=== PATIENT | female | born 1985 | race African-American/Black ===

== ENCOUNTER 2018-02-10 07:36 | Day surgery (SDC) | payer BC ==
[~2018-02-10 07:36] MED LIST: Lactated Ringers 1,000 ML IV SCH; Sodium Chloride 0.9% 10 ML Syringe FLUSH PRN; Sodium Chloride 0.9% 2.5 ML Syringe FLUSH PRN
--- NOTE | 2018-02-10 08:09 | PCM.PREANE ---
Preanesthetic Assessment - Anesthesia/Transfusion/Family Hx Anesthesia History: No Prior Anesthesia Family History of Anesthesia Reaction: No Transfusion History: No Prior Transfusion(s) Intubation History: Unknown - Review of Systems General: No Symptoms Pulmonary: No Symptoms Cardiovascular: No Symptoms Gastrointestinal: No Symptoms Neurological: No Symptoms Other: Reports: None - Physical Assessment Height: 1.54 m Weight: 72.121 kg ASA Class: 2 Mental Status: Alert & Oriented x3 Airway Class: Mallampati = 2 Dentition: Reports: Normal Dentition, Broken Tooth/Teeth (right upper molar x1) Thyro-Mental Finger Breadths: 3 Mouth Opening Finger Breadths: 3 ROM/Head Extension: Full Lungs: Clear to Auscultation, Normal Respiratory Effort Cardiovascular: Regular Rate, Regular Rhythm - Allergies Allergies/Adverse Reactions: Allergies Allergy/AdvReac Type Severity Reaction Status Date / Time No Known Allergies Allergy Verified 02/05/18 07:45 - Blood Blood Available: No - Anesthesia Plan Pre-Op Medication Ordered: None - Acknowledgements Anesthesia Type Planned: General Anesthesia Pt an Appropriate Candidate for the Planned Anesthesia: Yes Alternatives and Risks of Anesthesia Discussed w Pt/Guardian: Yes Pt/Guardian Understands and Agrees with Anesthesia Plan: Yes PreAnesthesia Questionnaire - Past Surgical History Head Surgeries/Procedures: Reports: None - SUBSTANCE USE Smoking Status *Q: Never Smoker Recreational Drug Use History: No - HOME MEDS Home Medications: Home Meds Ascorbic Acid [Vitamin C] 2 tab CHEW DAILY 01/22/18 [History] Cranberry Ext/C/L. Sporogenes [Azo Cranberry] 1 tab PO ASDIRECTED PRN 01/22/18 [ History] PNV95/Ferrous Fumarate/FA [ Vitamins Tablet] 1 tab PO DAILY 01/22/18 [ History] - CURRENT (IN HOUSE) MEDS Current Meds: Current Medications Lactated Ringer's (Ringers, Lactated) 1,000 mls @ 125 mls/hr IV ASDIRECTED ТАТЬЯНА Sodium Chloride (Saline Flush) 10 ml FLUSH ASDIRECTED PRN PRN Reason: Keep Vein Open Sodium Chloride (Saline Flush) 2.5 ml FLUSH ASDIRECTED PRN PRN Reason: Keep Vein Open Discontinued Medications Lactated Ringer's (Ringers, Lactated) 1,000 mls @ 125 mls/hr IV ASDIRECTED ТАТЬЯНА Sodium Chloride (Saline Flush) 10 ml FLUSH ASDIRECTED PRN PRN Reason: Keep Vein Open Sodium Chloride (Saline Flush) 2.5 ml FLUSH ASDIRECTED PRN PRN Reason: Keep Vein Open
[2018-02-10] MEDS ORDERED: Propofol 200 MG/20 ML SDV ONE (08:10)
[2018-02-10] MEDS ORDERED: Ondansetron 4 MG/2 ML SDV ONE (08:10)
[2018-02-10] MEDS ORDERED: fentaNYL 250 MCG/5 ML SDV ONE (08:10)
[2018-02-10] MEDS ORDERED: Lidocaine 2% 5 ML SDV ONE (08:10)
[2018-02-10] MEDS ORDERED: Midazolam 1 MG/ML 2 ML SDV ONE (08:10)
[2018-02-10] MEDS ORDERED: Lactated Ringers 1,000 ML IV SCH (08:15)
[2018-02-10] MEDS ORDERED: fentaNYL 100 MCG/2 ML SDV IVPUSH PRN (09:04)
[2018-02-10] MEDS ORDERED: Ketorolac 30 MG/ML SDV ONE (09:12)
[2018-02-10] MEDS ORDERED: Sodium Chloride 0.9% 2.5 ML Syringe FLUSH PRN (09:25)
[2018-02-10] MEDS ORDERED: Sodium Chloride 0.9% 10 ML Syringe FLUSH PRN (09:25)
--- NOTE | 2018-02-10 09:54 | PCM.OPNOTE ---
- General Post-Op/Procedure Note Date of Surgery/Procedure: 02/10/18 Operative Procedure(s): Hysteroscopy Dilatation and Curettage with Myosure Findings: EUA showed normal sized anteverted uterus Hysteroscopy showed abundant proliferative, polypoid endometrium Pre Op Diagnosis: Thickened Endometrium. Oligomenorrhea. Endometrial Hyperplasia Post-Op Diagnosis: Same Anesthesia Technique: General LMA Primary Surgeon: Karen Gómez Pathology: Endometrial curettings Fluid Replacement, Intraop: 1,200 EBL in mLs: 5 Complications: None Condition: Good Free Text/Narrative:: Intake & Output 02/09/18 02/10/18 02/10/18 22:59 06:59 14:59 Output Total 50 Balance -50
--- NOTE | 2018-02-10 10:14 | PCM.POSTAN ---
POST ANESTHESIA ASSESSMENT - MENTAL STATUS Mental Status: Alert, Oriented - RESPIRATORY Respiratory Status: Respiratory Rate WNL, Airway Patent, O2 Saturation Stable - CARDIOVASCULAR CV Status: Pulse Rate WNL, Blood Pressure Stable - GASTROINTESTINAL GI Status: No Symptoms - PAIN Pain Score: 0 - POST OP HYDRATION Hydration Status: Adequate & Stable
[2018-02-10 12:03] VITALS: BP 113/65
--- NOTE | 2018-02-10 13:55 | OR ---
SURGEON: KAMLESH LEYVA DATE OF PROCEDURE: INDICATION: A 32-year-old, para 0, with oligomenorrhea, endometrial ultrasound suggestive of thickened endometrium, possible polyp versus malignancy and endometrial biopsy done showed complex endometrial hyperplasia without atypia. IV FLUID: 1200. EBL: 5 mL. FLUID DEFICIT: 480 of normal saline. PROCEDURE PERFORMED: Hysteroscopy, dilatation and curettage with MyoSure device. FINDING: Normal-sized anteverted uterus, examination of the biopsy and the hysteroscope showed a polyp and fluffy endometrium, which appeared polypoid like fluffy polypoid endometrium. BRIEF HISTORY: She is a 32-year-old, para 0, who came in to be evaluated for infertility. The patient had an endometrial ultrasound done, which showed a thickened endometrium with possible polyp versus malignancy. As a result, the patient had EMB done in the office, which the patient could not really tolerate it. Pathology was complex endometrial hyperplasia without atypia. As a result for better sampling, the patient was consented for D and C hysteroscopy in the office. PROCEDURE IN DETAIL: The patient was taken to the operating room where she was prepared and draped in the sterile fashion on the general anesthesia. She was placed in the dorsal lithotomy position with Wayne stirrups. After bimanual examination, the cervix was exposed with a bivalve speculum. The anterior lip was grasped with a tenaculum. The uterus was then dilated to accommodate the 0-degree hysteroscope. The distending media was then turned on and the distention was kept at with good visualization with fully distend to 90 mmHg. The above aforementioned finding was noted. The MyoSure was then used for curettage of the endometrium and the polypoid portion of the endometrium. After the curette and curettaged, the MyoSure was removed and the hysteroscope was also removed from the cavity. Then, the size 3 curette was used to do gentle curettage of the folds of the uterus. Moderate tissue was obtained and sent to pathology. All instruments were removed from the vaginal vault. The tenaculum site was inspected, noted to be hemostatic. The patient was sent to recovery room in stable condition. ROXANA / ARMAND /[id number]
== END 2018-02-10 11:17 | disposition home or self-care (01) ==
LOC: MW.SDS 07:36
PROVIDERS: ATTEND Obstetrics & Gynecology
DX: N85.01 Benign endometrial hyperplasia (principal); Z79.899 Other long term (current) drug therapy
CPT/HCPCS: 36415; 58558; 84703; 86850; 86900; 86901; J1885; J2250; J2405; J3010; J7120; 88305; J2704

== ENCOUNTER 2018-03-28 23:58 | Emergency (ER) | payer BC ==
[2018-03-29] MEDS ORDERED: Sodium Chloride 0.9% 1,000 ML IV ONE (01:30)
[2018-03-29] MEDS ORDERED: Ketorolac 30 MG/ML SDV IVPUSH ONE (01:30)
[2018-03-29 01:33] LABS: CHLORIDE,CL 103 mmol/L (98-107); SODIUM,NA 138 mmol/L (136-145)
[2018-03-29] MEDS ORDERED: HYDROmorphone 1 MG/ML Syringe IVPUSH ONE (03:19)
--- NOTE | 2018-03-29 03:50 | EDM.PDOC ---
ED HPI GENERAL MEDICAL PROBLEM - General Chief Complaint: Flank Pain Stated Complaint: PAIN- LOWER BACK LEFT SIDE Time Seen by Provider: 03/29/18 00:05 Source of Information: Reports: Patient History Limitations: Reports: No Limitations - History of Present Illness INITIAL COMMENTS - FREE TEXT/NARRATIVE: HISTORY AND PHYSICAL: History of present illness: 33-year-old female presenting emergency department with chief complaint of left sided flank pain 2 days. Patient states that approximately 2 days ago she began to have some left-sided back pain. Is located in her left side of her back radiating under her left rib cage. States that over the past 2 days it's gotten. She denies any associated fever, nausea, vomiting. She does not have a history kidney stones. She denies any dysuria or hematuria. She denies any recent illness. States that she has been taking ibuprofen but it has not seemed to help. She may have twisted wrong. Family denies any chest pain, palpitation, shortness breath, syncopal episode, focal neurologic deficits. Review of systems: As per history of present illness and below otherwise all systems reviewed and negative. Past medical history: As per history of present illness and as reviewed below otherwise noncontributory. Surgical history: As per history of present illness and as reviewed below otherwise noncontributory. Social history: No reported history of drug or alcohol abuse. Family history: As per history of present illness and as reviewed below otherwise noncontributory. Physical exam: HEENT: Atraumatic, normocephalic, pupils reactive, negative for conjunctival pallor or scleral icterus, mucous membranes moist, throat clear, neck supple, nontender, trachea midline. Lungs: Clear to auscultation, breath sounds equal bilaterally, chest nontender. Heart: S1S2, regular, negative for clicks, rubs, or JVD. Abdomen: Soft, nondistended, nontender. Negative for masses or hepatosplenomegaly. Right-sided CVA tenderness. Pelvis: Stable nontender. Genitourinary: Deferred. Rectal: Deferred. Extremities: Atraumatic, negative for cords or calf pain. Neurovascular unremarkable. Neuro: Awake, alert, oriented. Cranial nerves II through XII unremarkable. Cerebellum unremarkable. Motor and sensory unremarkable throughout. Exam nonfocal. Diagnostics: CBC, CMP, UA/UC, hCG, CT abdomen and pelvis. Therapeutics: 1 mg IV Dilaudid, Toradol 30 mg IV Impression: Left thoracic strain Plan: CBC, CMP, UA/UC, hCG, and CT abdomen and pelvis were unremarkable. Most likely patient had a left back strain. Her pain was controlled with toradol as well as Dilaudid. She was discharged in good condition with a prescription for Flexeril as well as information on primary care care providers. She was instructed to follow-up with the primary care provider on Friday and return to emergency department if she had any new or worsening pain. left flank Pain Score (Numeric/FACES): 10 - Related Data Allergies Allergy/AdvReac Type Severity Reaction Status Date / Time No Known Allergies Allergy Verified 03/29/18 00:13 Home Meds: Home Meds . 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 (See Below) Other OB/BYN History: uterine polyp Musculoskeletal History: Reports: None Neurological History: Reports: None Psychiatric History: Reports: None Endocrine/Metabolic History: Reports: None Hematologic History: Reports: None Immunologic History: Reports: None Oncologic (Cancer) History: Reports: None Dermatologic History: Reports: None - Past Surgical History Head Surgeries/Procedures: Reports: None HEENT Surgical History: Reports: None Cardiovascular Surgical History: Reports: None Respiratory Surgical History: Reports: None GI Surgical History: Reports: None Female Surgical History: Reports: Other (See Below) Other Female Surgeries/Procedures: uterine polpy removed Endocrine Surgical History: Reports: None Neurological Surgical History: Reports: None Musculoskeletal Surgical History: Reports: None Oncologic Surgical History: Reports: None Dermatological Surgical History: Reports: None Social & Family History - Family History Family Medical History: Noncontributory - Tobacco Use Smoking Status *Q: Never Smoker Second Hand Smoke Exposure: No - Caffeine Use Caffeine Use: Reports: Coffee - Recreational Drug Use Recreational Drug Use: No ED ROS GENERAL - Review of Systems Review Of Systems: See Below ED EXAM, GENERAL - Physical Exam Exam: See Below Course - Vital Signs Last Recorded V/S: Last Vital Signs Temp 97.2 F 03/29/18 00:13 Pulse 100 03/29/18 00:13 Resp 18 03/29/18 00:13 BP 124/82 03/29/18 00:13 Pulse Ox 97 03/29/18 00:13 - Orders/Labs/Meds Orders: Active Orders 24 hr Category Date Time Status Abdomen Pelvis wo Cont [CT] Stat Exams 03/29/18 00:23 Taken CULTURE URINE [RM] Stat Lab 03/29/18 00:25 Ordered HCG QUALITATIVE,URINE [URCHEM] Stat Lab 03/29/18 00:25 Ordered UA W/MICROSCOPIC [URIN] Stat Lab 03/29/18 00:25 Ordered Labs: Laboratory Tests 03/29/18 03/29/18 03/29/18 Range/Units 00:25 00:25 00:39 WBC 8.12 (4.0-11.0) K/uL RBC 4.47 (4.30-5.90) M/uL Hgb 12.5 (12.0-16.0) g/dL Hct 38.4 (36.0-46.0) % MCV 85.9 (80.0-98.0) fL MCH 28.0 (27.0-32.0) pg MCHC 32.6 (31.0-37.0) g/dL RDW Std Deviation 39.8 (28.0-62.0) fl RDW Coeff of Reji 13 (11.0-15.0) % Plt Count 252 (150-400) K/uL MPV 12.30 H (7.40-12.00) fL Neut % (Auto) 54.1 (48.0-80.0) % Lymph % (Auto) 34.0 (16.0-40.0) % [place] % (Auto) 10.8 (0.0-15.0) % Eos % (Auto) 0.9 (0.0-7.0) % Baso % (Auto) 0.2 (0.0-1.5) % Neut # (Auto) 4.4 (1.4-5.7) K/uL Lymph # (Auto) 2.8 H (0.6-2.4) K/uL [place] # (Auto) 0.9 H (0.0-0.8) K/uL Eos # (Auto) 0.1 (0.0-0.7) K/uL Baso # (Auto) 0.0 (0.0-0.1) K/uL Sodium (136-145) mmol/L Potassium (3.5-5.1) mmol/L Chloride (98-107) mmol/L Carbon Dioxide (21.0-32.0) mmol/L BUN (7.0-18.0) mg/dL Creatinine (0.6-1.0) mg/dL Est Cr Clr Drug Dosing mL/min Estimated GFR (MDRD) ml/min Glucose (74-106) mg/dL Calcium (8.5-10.1) mg/dL Total Bilirubin (0.2-1.0) mg/dL AST (15-37) IU/L ALT (14-63) IU/L Alkaline Phosphatase (46-116) U/L Total Protein (6.4-8.2) g/dL Albumin (3.4-5.0) g/dL Globulin (2.0-3.5) g/dL Albumin/Globulin Ratio (1.3-2.8) Lipase (73-393) U/L Urine Color YELLOW Urine Appearance CLEAR Urine pH 6.0 (5.0-8.0) Ur Specific Given 1.020 (1.001-1.035) Urine Protein NEGATIVE (NEGATIVE) mg/dL Urine Glucose (UA) NEGATIVE (NEGATIVE) mg/dL Urine Ketones NEGATIVE (NEGATIVE) mg/dL Urine Occult Blood NEGATIVE (NEGATIVE) Urine Nitrite NEGATIVE (NEGATIVE) Urine Bilirubin NEGATIVE (NEGATIVE) Urine Urobilinogen 0.2 (<2.0) EU/dL Ur Leukocyte Esterase NEGATIVE (NEGATIVE) Urine RBC 0-2 (0-2/HPF) Urine WBC 0-2 (0-5/HPF) Ur Epithelial Cells FEW (NONE-FEW) Urine Bacteria FEW (NEGATIVE) Urine HCG, Qual NEGATIVE (NEGATIVE) 03/29/18 Range/Units 00:39 WBC (4.0-11.0) K/uL RBC (4.30-5.90) M/uL Hgb (12.0-16.0) g/dL Hct (36.0-46.0) % MCV (80.0-98.0) fL MCH (27.0-32.0) pg MCHC (31.0-37.0) g/dL RDW Std Deviation (28.0-62.0) fl RDW Coeff of Reji (11.0-15.0) % Plt Count (150-400) K/uL MPV (7.40-12.00) fL Neut % (Auto) (48.0-80.0) % Lymph % (Auto) (16.0-40.0) % [place] % (Auto) (0.0-15.0) % Eos % (Auto) (0.0-7.0) % Baso % (Auto) (0.0-1.5) % Neut # (Auto) (1.4-5.7) K/uL Lymph # (Auto) (0.6-2.4) K/uL [place] # (Auto) (0.0-0.8) K/uL Eos # (Auto) (0.0-0.7) K/uL Baso # (Auto) (0.0-0.1) K/uL Sodium 138 (136-145) mmol/L Potassium 3.8 (3.5-5.1) mmol/L Chloride 103 (98-107) mmol/L Carbon Dioxide 24.4 (21.0-32.0) mmol/L BUN 14 (7.0-18.0) mg/dL Creatinine 1.1 H (0.6-1.0) mg/dL Est Cr Clr Drug Dosing 60.17 mL/min Estimated GFR (MDRD) > 60.0 ml/min Glucose 103 (74-106) mg/dL Calcium 8.9 (8.5-10.1) mg/dL Total Bilirubin 0.2 (0.2-1.0) mg/dL AST 20 (15-37) IU/L ALT 17 (14-63) IU/L Alkaline Phosphatase 73 (46-116) U/L Total Protein 8.3 H (6.4-8.2) g/dL Albumin 3.7 (3.4-5.0) g/dL Globulin 4.6 H (2.0-3.5) g/dL Albumin/Globulin Ratio 0.8 L (1.3-2.8) Lipase 120 (73-393) U/L Urine Color Urine Appearance Urine pH (5.0-8.0) Ur Specific Given (1.001-1.035) Urine Protein (NEGATIVE) mg/dL Urine Glucose (UA) (NEGATIVE) mg/dL Urine Ketones (NEGATIVE) mg/dL Urine Occult Blood (NEGATIVE) Urine Nitrite (NEGATIVE) Urine Bilirubin (NEGATIVE) Urine Urobilinogen (<2.0) EU/dL Ur Leukocyte Esterase (NEGATIVE) Urine RBC (0-2/HPF) Urine WBC (0-5/HPF) Ur Epithelial Cells (NONE-FEW) Urine Bacteria (NEGATIVE) Urine HCG, Qual (NEGATIVE) Meds: Medications Discontinued Medications Generic Name Dose Route Start Last Admin Trade Name Perla PRN Reason Stop Dose Admin Hydromorphone HCl 1 mg 03/29/18 03:19 03/29/18 03:34 Dilaudid IVPUSH 03/29/18 03:20 1 mg ONETIME ONE Administration Sodium Chloride 1,000 mls @ 999 mls/hr 03/29/18 01:30 03/29/18 01:35 Normal Saline IV 03/29/18 02:30 999 mls/hr .Bolus ONE Administration Ketorolac Tromethamine 30 mg 03/29/18 01:30 03/29/18 01:35 Toradol IVPUSH 03/29/18 01:31 30 mg ONETIME ONE Administration Departure - Departure Time of Disposition: 03:51 Disposition: Home, Self-Care 01 Condition: Good Clinical Impression: Upper back strain Qualifiers: Encounter type: initial encounter Qualified Code(s): S29.012A - Strain of muscle and tendon of back wall of thorax, initial encounter - Discharge Information Referrals: PCP,None [Primary Care Provider] - Forms: ED Department Discharge Additional Instructions: My general discharge The following information is given to patients seen in the emergency department who are being discharged to home. This information is to outline your options for follow-up care. We provide all patients seen in our emergency department with a follow-up referral. The need for follow-up, as well as the timing and circumstances, are variable depending upon the specifics of your emergency department visit. If you don't have a primary care physician on staff, we will provide you with a referral. We always advise you to contact your personal physician following an emergency department visit to inform them of the circumstance of the visit and for follow-up with them and/or the need for any referrals to a consulting specialist. The emergency department will also refer you to a specialist when appropriate. This referral assures that you have the opportunity for follow-up care with a specialist. All of these measure are taken in an effort to provide you with optimal care, which includes your follow-up. Under all circumstances we always encourage you to contact your private physician who remains a resource for coordinating your care. When calling for follow-up care, please make the office aware that this follow-up is from your recent emergency room visit. If for any reason you are refused follow-up, please contact the [facility] Emergency Department at and asked to speak to the emergency department charge nurse. [facility] [address] [place] [phone] [address] Please call 1 of the above numbers to schedule an appointment with a primary care provider on Friday. Mention that you were seen in the emergency department and they wished for you to follow-up. Take Flexeril muscle relaxer as directed. Can take ibuprofen not to exceed 3000 mg a day and Tylenol not to exceed 4000 mg a day for pain and inflammation. - My Orders Last 24 Hours: My Active Orders 03/29/18 00:23 Abdomen Pelvis wo Cont [CT] Stat 03/29/18 00:25 CULTURE URINE [RM] Stat HCG QUALITATIVE,URINE [URCHEM] Stat UA W/MICROSCOPIC [URIN] Stat - Assessment/Plan Last 24 Hours: My Active Orders 03/29/18 00:23 Abdomen Pelvis wo Cont [CT] Stat 03/29/18 00:25 CULTURE URINE [RM] Stat HCG QUALITATIVE,URINE [URCHEM] Stat UA W/MICROSCOPIC [URIN] Stat
[2018-03-29 04:11] VITALS: BP 116/71
--- NOTE | 2018-03-30 13:01 | CT ---
EXAM DATE: 03/28/18 PATIENT'S AGE: 33 Patient: NICKIE HOLLY Facility: [place], [place] Site . Site : 1985 Study: CT Abdomen/Pelvis W/O [id number]/[id number] 1:25:02 AM Ordering Physician: Doctor Marquez Final Report: INDICATION: Left flank pain TECHNIQUE: CT abdomen and pelvis without contrast. COMPARISON: None FINDINGS: Lower chest: Unremarkable. Liver: Unremarkable. Spleen: Unremarkable. Pancreas: Unremarkable. Gallbladder and bile ducts: Unremarkable. Adrenal glands: Unremarkable. Kidneys: Unremarkable. No kidney or ureteral stones and no hydronephrosis. GI tract: Unremarkable. Appendix is normal. Vascular structures: Unremarkable. Lymph nodes: Unremarkable. Miscellaneous: Unremarkable. No free air or significant free fluid. Pelvic Organs: Unremarkable. Bones: Unremarkable for age. IMPRESSION: Unremarkable noncontrast CT of the abdomen and pelvis. No urinary tract stones, hydronephrosis, or other cause for flank pain. Please note that all CT scans at this facility use dose modulation, iterative reconstruction, and/or weight-based dosing when appropriate to reduce radiation dose to as low as reasonably achievable. Dictated by Ava Jimenez MD @ Mar 29 2018 1:27AM (Electronic Signature) Report Signed by Proxy. TOOTIE
== END 2018-03-29 04:04 | disposition home or self-care (01) ==
LOC: MW.ED 23:58
DX: S29.012A Strain of muscle and tendon of back wall of thorax, initial encounter (principal); X58.XXXA Exposure to other specified factors, initial encounter
CPT/HCPCS: 74176; 80053; 81001; 81025; 83690; 85025; 87086; 96361; 96374; 96375; 99284; J1170; J1885; J7040; 99283